=== PATIENT | female | born 1965 | race Caucasian/White ===

== ENCOUNTER 2018-08-05 10:54 | Outpatient (REF) | payer MEDICAID, SELFPAY ==
[2018-08-05 20:58] LABS: Hemoglobin A1C 5.2 % (4.5-6.2)
[2018-08-05 21:53] LABS: Cholesterol 248 mg/dL (50-200); HDL Cholesterol 51 mg/dL (40-60); LDL CHOLESTEROL 166 mg/dL (<100); Triglyceride 163 mg/dL (30-150)
== END 2018-08-05 11:14 ==
LOC: NCHCN 10:54
PROVIDERS: PCP Internal Medicine; Visit Provider Nurse Practitioner Family
DX: Z00.00 Encounter for general adult medical examination without abnormal findings (principal); F45.8 Other somatoform disorders; Z13.220 Encounter for screening for lipoid disorders; Z13.29 Encounter for screening for other suspected endocrine disorder; Z13.1 Encounter for screening for diabetes mellitus
CPT/HCPCS: 80061; 83721; 83036; 84443

== ENCOUNTER 2019-08-13 09:42 | Outpatient (REF) | payer MEDICAID, SELFPAY ==
[2019-08-13 19:43] LABS: BUN 30 mg/dL (7-18); CREATININE 0.94 mg/dL (0.55-1.02); Calcium 9.7 mg/dL (8.5-10.1); Chloride 101 mmol/L (98-107); Glucose 107 mg/dL (70-100); Potassium 3.7 mmol/L (3.5-5.1); Sodium 141 mmol/L (136-145)
== END 2019-08-13 10:02 ==
LOC: NCHCN 09:42
PROVIDERS: PCP Internal Medicine; Visit Provider Nurse Practitioner Family
DX: I10 Essential (primary) hypertension (principal)
CPT/HCPCS: 80048

== ENCOUNTER 2019-11-29 09:45 | Outpatient (REF) | payer MEDICAID, SELFPAY ==
[2019-11-29 21:22] LABS: Abs Immature Grans 0.02 k/cumm (0.0-0.09); Absolute Basophil Count 0.08 k/cumm (0.0-0.2); Absolute Eosinophil Count 0.42 k/cumm (0.0-0.7); Absolute Lymphocyte Count 1.68 k/cumm (1.2-3.4); Absolute Monocyte Count 0.67 k/cumm (0.11-0.7); Absolute Neutrophil Count 5.24 k/cumm (1.2-6.7); Eosinophils % 5.2; HCT 41.2 % (36.0-46.0); HGB 13.8 g/dL (12.0-15.5); Immature Grans % 0.2; Lymphocytes % 20.7; Mean Corp. HGB Concentration 33.5 g/dL (32.0-36.0); Mean Corpuscular Hemoglobin 29.6 pg (27.0-33.0); Mean Corpuscular Volume 88.4 fL (80-95); Mean Platelet Volume 9.5 fL (8.0-11.0); Monocytes % 8.3; Neutrophils % 64.6; Platelet Count 458 x1000/uL (130-400); RBC 4.66 m/cumm (4.00-5.20); RBC Distribution Width 13.6 % (11.7-14.6); White Blood Cell Count 8.11 k/cumm (4.4-10.8)
[2019-11-29 21:37] LABS: ALT 25 U/L (14-59); AST 22 U/L (15-37); Albumin 3.9 g/dL (3.4-5.0); Alkaline Phosphatase 89 U/L (46-116); Anion Gap 11.4 mmol/L (3-11); BUN 29 mg/dL (7-18); Bilirubin, Total 0.5 mg/dL (0.2-1.0); CO2 26.6 mmol/L (21.0-32.0); CREATININE 0.94 mg/dL (0.55-1.02); Calcium 9.7 mg/dL (8.5-10.1); Chloride 103 mmol/L (98-107); Glucose 116 mg/dL (74-106); Magnesium 1.8 mg/dL (1.8-2.4); Potassium 3.5 mmol/L (3.5-5.1); Sodium 141 mmol/L (136-145); TSH (W/Ref FT4) 1.22 uIU/mL (0.36-3.74); Total Protein 7.8 g/dL (6.4-8.2)
== END 2019-11-29 10:05 ==
LOC: NCHCN 09:45
PROVIDERS: PCP Internal Medicine; Visit Provider Physician Assistant
DX: E04.1 Nontoxic single thyroid nodule (principal); I10 Essential (primary) hypertension; R53.83 Other fatigue; R51 Headache
CPT/HCPCS: 80053; 83735; 84443; 85025

== ENCOUNTER 2020-03-01 18:08 | Outpatient (REF) | payer SELFPAY ==
[2020-03-01 19:42] LABS: Anion Gap 6.8 mmol/L (3-11); BUN 23 mg/dL (7-18); CO2 31.2 mmol/L (21.0-32.0); CREATININE 0.96 mg/dL (0.55-1.02); Calcium 9.2 mg/dL (8.5-10.1); Chloride 106 mmol/L (98-107); Glucose 114 mg/dL (74-106); Potassium 3.5 mmol/L (3.5-5.1); Sodium 144 mmol/L (136-145)
== END 2020-03-01 18:28 ==
LOC: NCHCN 18:08
PROVIDERS: PCP Internal Medicine; Visit Provider Nurse Practitioner Family
DX: I10 Essential (primary) hypertension (principal)
CPT/HCPCS: 80048

== ENCOUNTER 2022-10-22 17:40 | Outpatient (REF) | payer SELFPAY ==
[2022-10-22 19:18] LABS: Abs Immature Grans 0.01 10^3/uL (0.0-0.06); Absolute Basophil Count 0.09 10^3/uL (0.0-0.2); Absolute Eosinophil Count 0.17 10^3/uL (0.0-0.7); Absolute Lymphocyte Count 2.03 10^3/uL (1.2-3.4); Absolute Monocyte Count 0.62 10^3/uL (0.1-0.8); Absolute Neutrophil Count 3.98 10^3/uL (1.2-6.7); Basophils % 1.3; Eosinophils % 2.5; Immature Grans % 0.1; Lymphocytes % 29.4; MCHC 33.3 % (32.0-36.0); MCV 87 fL (80-95); MPV 9.6 fL (8.0-11.0); Neutrophils % 57.7; Platelet Count 369 10^3/uL (130-400); RBC 4.49 10^6/uL (3.93-5.22)
[2022-10-22 19:29] LABS: ALT 38 U/L (14-59); AST 30 U/L (15-37); Albumin 4.2 g/dL (3.4-5.0); Alkaline Phosphatase 85 U/L (46-116); Amylase 53 U/L (25-115); Anion Gap 7.2 mmol/L (3-11); BUN 22 mg/dL (7-18); Bilirubin, Total 0.7 mg/dL (0.2-1.0); CO2 27.8 mmol/L (21.0-32.0); CREATININE 1.1 mg/dL (0.55-1.02); Calcium 9.2 mg/dL (8.5-10.1); Chloride 102 mmol/L (98-107); Estimated GFR 58.97 (mL/min/1.73m2); Glucose 95 mg/dL (74-106); Lipase 171 U/L (73-393); Potassium 3.8 mmol/L (3.5-5.1); Sodium 137 mmol/L (136-145); Total Protein 8.1 g/dL (6.4-8.2)
== END 2022-10-22 17:41 | disposition home or self-care (01) ==
LOC: NCHCN 17:40
PROVIDERS: PCP Internal Medicine; Visit Provider Physician Assistant
DX: R10.13 Epigastric pain (principal)
CPT/HCPCS: 80053; 83690; 82150; 85025

== ENCOUNTER 2023-08-20 13:46 | Outpatient (REF) | payer BC, SELFPAY ==
[2023-08-20 20:49] LABS: HCT 38.4 % (36.0-46.0); HGB 12.6 g/dL (11.2-15.7); MCH 28.4 pg (27.0-33.0); MCHC 32.8 % (32.0-36.0); MCV 87 fL (80-95); MPV 10.1 fL (8.0-11.0); Platelet Count 373 10^3/uL (130-400); RBC 4.44 10^6/uL (3.93-5.22); RDW 12.9 % (11.7-14.6); WBC 5.96 10^3/uL (4.4-10.8)
[2023-08-20 21:19] LABS: Vitamin D 25 Total 38.8 ng/mL (30-100)
[2023-08-20 21:21] LABS: ALT 22 U/L (14-59); AST 19 U/L (15-37); Albumin 3.8 g/dL (3.4-5.0); Alkaline Phosphatase 93 U/L (46-116); Anion Gap 7.5 mmol/L (3-11); BUN 23 mg/dL (7-18); Bilirubin, Total 0.6 mg/dL (0.2-1.0); CO2 26.5 mmol/L (21.0-32.0); Calcium 9.6 mg/dL (8.5-10.1); Chloride 104 mmol/L (98-107); Estimated GFR 65.71 (mL/min/1.73m2); Glucose 101 mg/dL (74-106); LDL CHOLESTEROL 176 mg/dL (<100); Magnesium 2.2 mg/dL (1.8-2.4); Sodium 138 mmol/L (136-145); Total Protein 7.8 g/dL (6.4-8.2); Vitamin B12 845 pg/mL (193-986)
== END 2023-08-20 13:47 | disposition home or self-care (01) ==
LOC: NCHCN 13:46
PROVIDERS: PCP Internal Medicine; Visit Provider Physician Assistant
DX: I10 Essential (primary) hypertension (principal); E78.5 Hyperlipidemia, unspecified; E04.1 Nontoxic single thyroid nodule; F51.04 Psychophysiologic insomnia; F32.9 Major depressive disorder, single episode, unspecified; M79.7 Fibromyalgia
CPT/HCPCS: 80053; 82306; 83721; 85027; 82607; 83735

== ENCOUNTER 2025-03-30 10:30 | Outpatient (REF) | payer BC, SELFPAY ==
[2025-03-30 20:31] LABS: ALT 28 U/L (14-59); AST 25 U/L (15-37); Alkaline Phosphatase 91 U/L (46-116); BUN 22 mg/dL (7-18); Bilirubin, Total 0.8 mg/dL (0.2-1.0); CREATININE 1.1 mg/dL (0.55-1.02); Calcium 9.4 mg/dL (8.5-10.1); Calculated LDL 199 mg/dL (<100); Chloride 106 mmol/L (98-107); Cholesterol 289 mg/dL (<200); Estimated GFR 58.24 (mL/min/1.73m2); Glucose 101 mg/dL (74-106); HDL Cholesterol 77 mg/dL (>or=50); Potassium 4.8 mmol/L (3.5-5.1); Sodium 141 mmol/L (136-145); Total Protein 8.1 g/dL (6.4-8.2); Triglyceride 68 mg/dL (<150)
[2025-03-31 20:01] LABS: Hepatitis C Ab w Rflx HCV PCR Negative (Negative)
[2025-03-31 20:05] LABS: HIV-1/2 Ag & Ab Screen Negative (Negative)
== END 2025-03-30 10:31 | disposition home or self-care (01) ==
LOC: NCHCN 10:30
PROVIDERS: PCP Internal Medicine; Visit Provider Physician Assistant
DX: Z11.4 Encounter for screening for human immunodeficiency virus [HIV] (principal); Z11.59 Encounter for screening for other viral diseases; E78.5 Hyperlipidemia, unspecified
CPT/HCPCS: 80053; 80061; 86803; 87389

== ENCOUNTER 2025-08-31 20:16 | Outpatient (REF) | payer BC, SELFPAY ==
[2025-08-31 21:46] LABS: Abs Immature Grans 0.02 10^3/uL (0.0-0.06); HCT 39.8 % (36.0-46.0); HGB 13.1 g/dL (11.2-15.7); Immature Grans % 0.3 %; MCH 28.7 pg (27.0-33.0); MCHC 32.9 % (32.0-36.0); MCV 87 fL (80-95); MPV 9.8 fL (8.0-11.0); Platelet Count 390 10^3/uL (130-400); RBC 4.56 10^6/uL (3.93-5.22); RDW 13.5 % (11.7-14.6); RDW-SD 43.3 fL; WBC 7.33 10^3/uL (4.4-10.8)
[2025-08-31 21:48] LABS: ESR 16 mm/hr (0-30)
[2025-08-31 22:09] LABS: ALT 31 U/L (14-59); AST 22 U/L (15-37); Albumin 4.6 g/dL (3.4-5.0); Alkaline Phosphatase 93 U/L (46-116); Anion Gap 10.7 mmol/L (3-11); BUN 13 mg/dL (7-18); Bilirubin, Total 0.7 mg/dL (0.2-1.0); CO2 28.3 mmol/L (21.0-32.0); Calcium 9.5 mg/dL (8.5-10.1); Chloride 104 mmol/L (98-107); Estimated GFR 64.90 (mL/min/1.73m2); Glucose 98 mg/dL (74-106); Potassium 3.9 mmol/L (3.5-5.1); Sodium 143 mmol/L (136-145); Total Protein 7.9 g/dL (6.4-8.2)
[2025-08-31 22:11] LABS: C-Reactive Protein < 0.50 mg/dL (<or=0.5)
[2025-08-31 22:28] LABS: Iron 77 ug/dL (50-170); Total Iron Binding Capacity 319 ug/dL (250-450)
[2025-08-31 22:40] LABS: Ferritin 88 ng/mL (8-252)
[2025-09-01 18:27] LABS: HIV-1/2 Ag & Ab Screen Negative (Negative)
[2025-09-01 18:30] LABS: Hepatitis C Ab w Rflx HCV PCR Negative (Negative)
[2025-09-02 11:10] LABS: Syphilis Serology (RPR) Negative (Negative)
[2025-09-02 11:11] LABS: Chlamydia Result Negative (Negative); GC Result Negative (Negative)
== END 2025-08-31 20:17 | disposition home or self-care (01) ==
LOC: NCHCN 20:16
PROVIDERS: PCP Internal Medicine; Visit Provider Physician Assistant
DX: Z11.59 Encounter for screening for other viral diseases (principal); K92.1 Melena
CPT/HCPCS: 80053; 85652; 86803; 87340; 87389; 87491; 87591; 82728; 83540; 83550; 85025; 86140; 86592